=== PATIENT | male | born 1935 | race African-American/Black ===

== ENCOUNTER 2018-02-18 16:55 | Inpatient (IN) | payer MEDICARE ==
[~2018-02-18] VITALS: Ht 188 cm; Wt 79.9 kg
[2018-02-18] MEDS ORDERED: OMEG1CAP30 (17:33)
[2018-02-18] MEDS ORDERED: LISI20 PO (17:33)
[2018-02-18 18:20] LABS: Hematocrit 19.4 % (37.0-53.0); Hemoglobin 6.3 g/dL (13.5-17.5); Mean Corpuscular HGB 27.5 pg (26.0-34.0); Mean Corpuscular HGB Conc 32.5 g/dL (31.5-36.5); Mean Corpuscular Volume 85 fL (80-100); Mean Platelet Volume 10.6 fL (9.1-12.4); NRBC ABSOLUTE 0.05 K/mm3 (0.00-0.02); NRBC Auto 2.4 /100 WBC (0.0-0.2); Platelet Count 102 K/mm3 (150-400); RDW Coefficient Variation 16.1 % (11.7-14.2); RDW Standard Deviation 49.1 fL (35.1-46.3); Red Blood Cell Count 2.29 M/mm3 (4.30-5.90); White Blood Cell Count 2.07 K/mm3 (4.00-11.30)
[2018-02-18 19:07] LABS: BASOPHILS PERCENT MAN 0 % (0-2); EOSINOPHILS PERCENT MAN 0 % (0-6); LYMPHOCYTES % ATYPICAL MANUAL 1 % (0-0); LYMPHOCYTES ABSOLUTE MAN 0.76 K/mm3 (0.84-5.20); LYMPHOCYTES PERCENT MAN 36 % (21-46); MONOCYTES PERCENT MAN 0 % (4-13); SEG NEUTROPHILS PERCENT MAN 63 % (41-73); TOTAL CELLS COUNTED 100
[2018-02-19 02:27] LABS: Hematocrit 22.1 % (37.0-53.0); Hemoglobin 7.5 g/dL (13.5-17.5); Mean Corpuscular HGB Conc 33.9 g/dL (31.5-36.5); Mean Corpuscular Volume 85 fL (80-100); Mean Platelet Volume 11.5 fL (9.1-12.4); NRBC ABSOLUTE 0.07 K/mm3 (0.00-0.02); NRBC Auto 3.3 /100 WBC (0.0-0.2); Platelet Count 105 K/mm3 (150-400); RDW Standard Deviation 46.3 fL (35.1-46.3); Red Blood Cell Count 2.59 M/mm3 (4.30-5.90); White Blood Cell Count 2.13 K/mm3 (4.00-11.30)
[2018-02-19 02:31] LABS: Alanine Aminotransfer (ALT/SGP 8 U/L (12-78); Albumin, Blood 2.5 g/dL (3.4-5.0); Albumin/Globulin Ratio 0.8 (0.8-1.8); Alk Phos 42 U/L (50-136); Anion Gap 8 mmol/L (6-16); Aspartate Aminotrans (AST/SGOT 15 U/L (12-37); Bilirubin, Total 1.2 mg/dL (0.1-1.0); Blood Urea Nitrogen 27 mg/dL (8-24); Bun/Creatinine Ratio 34.2 (12.0-20.0); CO2, Blood 21 mmol/L (21-32); Calcium, Blood 7.2 mg/dL (8.5-10.1); Chloride, Blood 110 mmol/L (98-108); Creatinine, Blood 0.79 mg/dL (0.60-1.20); Globulin, Blood 3.1 g/dL (2.2-4.0); Glomerular Filtration Rate >60 (60-); Glucose, Blood 104 mg/dL (70-99); Potassium, Blood 4.2 mmol/L (3.5-5.5); Sodium, Blood 139 mmol/L (136-145); Total Protein, Blood 5.6 g/dL (6.4-8.2)
[2018-02-19 08:08] LABS: Hematocrit 21.6 % (37.0-53.0); Hemoglobin 7.5 g/dL (13.5-17.5)
[2018-02-19 14:32] LABS: Hematocrit 22.4 % (37.0-53.0); Hemoglobin 7.9 g/dL (13.5-17.5)
[2018-02-19 20:49] LABS: Hematocrit 20.3 % (37.0-53.0); Hemoglobin 7.1 g/dL (13.5-17.5)
[2018-02-20 08:49] LABS: Hematocrit 19.8 % (37.0-53.0); Hemoglobin 6.9 g/dL (13.5-17.5)
== END 2018-02-20 17:52 | disposition home or self-care (01) | DRG 378 ==
LOC: ER 16:55 → MEDS 17:10 → ENPENDDIS 02-20 11:00 → MEDS 02-20 17:52
PROVIDERS: Emergency Medicine; Internal Medicine; Internal Medicine Gastroenterology
PROC: 0W3P8ZZ Control Bleeding in Gastrointestinal Tract, Via Natural or Artificial Opening Endoscopic (ICD-10-PCS; principal; 2018-02-20)
PROC: 30233N1 Transfusion of Nonautologous Red Blood Cells into Peripheral Vein, Percutaneous Approach (ICD-10-PCS; 2018-02-20)
PROC: 30233N1 Transfusion of Nonautologous Red Blood Cells into Peripheral Vein, Percutaneous Approach (ICD-10-PCS; 2018-02-20)
DX: K62.5 Hemorrhage of anus and rectum (principal); D62 Acute posthemorrhagic anemia; D61.818 Other pancytopenia; K64.4 Residual hemorrhoidal skin tags; I10 Essential (primary) hypertension; Z85.46 Personal history of malignant neoplasm of prostate; K64.8 Other hemorrhoids; D46.9 Myelodysplastic syndrome, unspecified; K63.5 Polyp of colon
CPT/HCPCS: 36430; 71045; 80053; 85014; 85018; 85025; 85027; 86850; 86900; 86901; 86923; 96361; 96374; 96376; 99285; C9113; G0378; J1642; J2250; J2405; J7030; J7120; P9016